=== PATIENT | male | born 1965 | race Caucasian/White ===

== ENCOUNTER 2023-08-11 13:27 | Outpatient (CLI) | payer MEDICAID, SELFPAY ==
--- NOTE | 2023-08-11 14:30 | USCV_ITS ---
Emery Harrington Age: 58 Gender: M : 1965 Exam Date: 08/11/2023 14:56 Ordering Phys: Manasa Harmon NP Technologist: KAYLEIGH Exam Location: [facility] – [place], [place] Indication: RLE pain, edema, HISTORY: diabetes, RLE pain and edema several weeks PROCEDURES: Venous duplex imaging was performed in only the right lower extremity. The following venous structures were evaluated: common femoral vein, profunda vein, proximal portion of the greater saphenous vein, superficial femoral vein, and the popliteal vein. FINDINGS: No evidence of DVT seen in any vessel visualized at this time. CONCLUSIONS No evidence of right lower extremity DVT. Blaise Dimas MD (Electronically Signed) Final Date: 11 August 2023 15:52 S
== END 2023-08-11 13:28 | disposition home or self-care (01) ==
LOC: RAD 13:29
PROVIDERS: PCP Nurse Practitioner Family; Visit Provider Nurse Practitioner Family
DX: M25.571 Pain in right ankle and joints of right foot (principal)
CPT/HCPCS: 93971

== ENCOUNTER → 2023-08-22 11:03 | Outpatient (BNVA) | payer MEDICAID, SELFPAY | PROVIDERS: PCP Nurse Practitioner Family; Visit Provider Podiatrist Foot & Ankle Surgery | DX: M25.571 Pain in right ankle and joints of right foot (principal); M79.671 Pain in right foot; E11.42 Type 2 diabetes mellitus with diabetic polyneuropathy; G62.9 Polyneuropathy, unspecified; M84.474A Pathological fracture, right foot, initial encounter for fracture | CPT/HCPCS: 73610; 99203 ==

== ENCOUNTER → 2023-09-19 11:32 | Outpatient (BNVA) | payer MEDICAID, SELFPAY | PROVIDERS: PCP Nurse Practitioner Family; Visit Provider Podiatrist Foot & Ankle Surgery | DX: Z51.89 Encounter for other specified aftercare; E11.42 Type 2 diabetes mellitus with diabetic polyneuropathy; G62.9 Polyneuropathy, unspecified; M14.671 Charcot's joint, right ankle and foot; M84.474A Pathological fracture, right foot, initial encounter for fracture | CPT/HCPCS: 73630; 99213 ==